=== PATIENT | female | born 1980 | race Caucasian/White ===

== ENCOUNTER 2023-02-07 05:58 | Day surgery (SDC) | payer BC ==
[2023-02-07 06:44] LABS: HCG URINE TEST NEGATIVE (NEGATIVE)
[2023-02-07 06:48] VITALS: RESP 18
[2023-02-07] MEDS ORDERED: Lactated Ringers 1,000 ML IV ONE (06:54)
[2023-02-07] MEDS ORDERED: Lactated Ringers 1,000 ML IV SCH (07:00)
[2023-02-07] MEDS ORDERED: Xylocaine-Mpf 2% 5 Ml Vial ONE (07:14)
[2023-02-07] MEDS ORDERED: Versed 2 MG/2 ML Injection ONE (07:15)
[2023-02-07] MEDS ORDERED: DIPRIVAN 200 MG/20 ML IV ONE ×2 (07:15→07:43)
[2023-02-07] MEDS ORDERED: Mylicon DROPS ONE (07:43)
--- NOTE | 2023-02-07 08:10 | OP ---
SURGERY DATE/TIME: 02/07/2023 0596 PREOPERATIVE DIAGNOSES: 1) Screening exam. 2) Mother had colon cancer in her early 30's. POSTOPERATIVE DIAGNOSES: 1) Normal colon. 2) Moderate to large external hemorrhoids. PROCEDURE: Colonoscopy. SURGEON: Dr. Mahmood. ANESTHESIA: MAC. Medications given by anesthesia department. HISTORY: The patient is a 42-year-old white female presenting now for screening colonoscopy. She reports her mother had colon cancer in her 30's. The patient was appraised of the risks of the procedure including the risk of perforation, phlebitis, untoward reaction to medication, bleeding and missed lesions. The patient verbalized her understanding and desired to have the procedure performed. DESCRIPTION OF PROCEDURE: The patient was given the medications by the anesthesia department. She had continuous pulse oximetry, ECG monitoring and intermittent blood pressure monitoring. She was placed in the left lateral decubitus position. A digital rectal examination was performed and revealed moderate to large external hemorrhoids. No masses were felt and normal anal sphincter tone was otherwise present. The flexible Olympus pediatric colonoscope was used to intubate the rectum. A view of the colon was developed sequentially to the cecum. Upon insertion and withdrawal, including a retroflex view in the rectum, no mucosal lesions were encountered. The scope was removed from the patient who tolerated the procedure well and was sent back to OP recovery in good condition. The prep was noted to be fair to good.
[2023-02-07 08:21] VITALS: O2SAT 100
[2023-02-07 08:43] VITALS: BP 140/85; PULSE 54; TEMP 97.3
== END 2023-02-07 08:50 | disposition home or self-care (01) ==
LOC: SDC 05:58
PROVIDERS: ATTEND Family Medicine
DX: Z12.11 Encounter for screening for malignant neoplasm of colon (principal); Z80.0 Family history of malignant neoplasm of digestive organs; K64.4 Residual hemorrhoidal skin tags
CPT/HCPCS: 81025; J2250; J2704; A9270-GY

== ENCOUNTER 2024-03-04 10:51 | Day surgery (SDC) | payer BC ==
--- NOTE | 2024-03-04 08:35 | HP ---
HISTORY AND PHYSICAL HISTORY OF PRESENT ILLNESS: Had some mid/low abdominal pain and some upper abdominal pressure at times, originating lower. Bowel movement urgency and some loose stools. Some trouble evacuating at times. Patient is diaphoretic at times. Last colonoscopy before gallbladder surgery in the past. Some rectal bleeding, some dark and light. PAST MEDICAL HISTORY: Recent changes in bowel habits and abdominal pain, depression, asthma. HOME MEDICATIONS: MiraLAX, escitalopram, albuterol sulfate. ALLERGIES: Sulfa. PAST SURGICAL HISTORY: Cholecystectomy and colonoscopy in the past. SOCIAL HISTORY: No smoking. Occasional alcohol use. FAMILY HISTORY: Family history, mother with colon cancer. Negative for inflammatory bowel disease. Colon cancer, heart disease, emphysema, and stroke. REVIEW OF SYSTEMS: Twelve systems reviewed. No chest pain or palpitations. Other systems negative or noncontributory as above and per preadmission questionnaire. PHYSICAL EXAMINATION: GENERAL: Height 5 feet 5 inches. BMI 27. HEENT: Sclerae nonicteric. NECK: No JVD. CARDIOVASCULAR: Regular rate and rhythm. ABDOMEN: Soft. No peritoneal signs. EXTREMITIES: No clubbing, cyanosis, or edema. NEUROLOGIC: Alert and oriented, moving all extremities symmetrically. PSYCHIATRIC: Appropriate mood and affect. SKIN: Dry. RECTAL: Deferred until the time of endoscopy exam. ASSESSMENT: Abdominal pain, discomfort, change in bowel habits, rectal bleeding, family history of colon cancer. Needs EGD and colonoscopy for evaluation to evaluate for celiac disease, gastritis, ulcer disease, colitis, neoplasia, or other etiology. Shown the risk sheet and explained the procedure in detail including but not limited to bleeding or infection, risk of bowel injury or perforation, risk of misdiagnosis or nondiagnosis, risk of incomplete exam possibly requiring barium enema or other studies or procedure or referrals, general risk of sedation or anesthesia, risk of bowel prep but not limited to. Will proceed with EGD and colonoscopy under MAC anesthesia. Otherwise, continue medications for asthma and depression.
[2024-03-04] MEDS ORDERED: Lactated Ringers 1,000 ML IV ONE (11:11)
[2024-03-04 11:14] VITALS: RESP 16; O2SAT 100
[2024-03-04] MEDS: Lactated Ringers 1,000 ML IV SCH (11:25)
[2024-03-04 11:41] LABS: HCG URINE TEST NEGATIVE (NEGATIVE)
[2024-03-04] MEDS ORDERED: DIPRIVAN 200 MG/20 ML IV ONE ×2 (13:51→13:53)
[2024-03-04] MEDS ORDERED: Versed 2 MG/2 ML Injection ONE (13:51)
[2024-03-04 15:07] VITALS: BP 115/77; PULSE 76; TEMP 98.6
--- NOTE | 2024-03-05 12:10 | OP ---
SURGERY DATE/TIME: 03/04/2024 4784 - [id number] PREOPERATIVE DIAGNOSES: 1) Change in bowel habits. 2) Abdominal pain. 3) Family history of colon cancer. 4) ASA Class 2. 5) Need for upper and lower endoscopy to evaluate for celiac, gastritis, ulcer disease, colitis, neoplasia, inflammatory bowel disease, or other etiology. POSTOPERATIVE DIAGNOSIS: 1) Minimal amount of gastritis. 2) Minimal esophageal erythema. 3) Colon polyps. 4) Good bowel prep. 5) Normal terminal ileum. PROCEDURE: 1) Esophagogastroduodenoscopy, cold biopsy of antrum for Helicobacter pylori, cold biopsy of distal esophagus to evaluate for normal variation versus early inflammation. 2) Colonoscopy to terminal ileum. 3) Retrograde ileoscopy. 4) Random ileal biopsy, random colon biopsy to evaluate for microscopic ileitis, microscopic colitis. 5) Hot biopsy polypectomy of small transverse colon polyp, small rectal polyp, small sigmoid colon polyps. SURGEON: Chris Daigle MD ANESTHESIA: MAC. ASA Class 2 with prep good. Withdrawal time was approximately 9 minutes. ESTIMATED BLOOD LOSS: Minimal. INDICATIONS: As above. Consent was obtained. DESCRIPTION OF PROCEDURE AND FINDINGS: This patient was taken to the endoscopy room. MAC anesthesia induced after official time-out for planned procedure. Bite block positioned. Videogastroscope easily passed down the esophagus to the junction of the third and fourth portion of duodenum. Duodenum grossly unremarkable. Given her symptom complaints, cold biopsy taken of the small bowel to evaluate for celiac sprue. Good hemostasis noted. Scope pulled back into the stomach. Some mild gastric erythema, minimal amount of gastritis. Cold biopsy was taken to evaluate for H. pylori. Good hemostasis noted. On retroflexion, GE junction was snug against the scope. Scope was straightened, pulled back. GE junction about 40 cm. Z-line was fairly crisp. There was just a little slight erythema distal esophagus. Cold biopsy taken to evaluate for some early inflammation. Good hemostasis noted. Remainder of esophagus grossly unremarkable. Scope was withdrawn. Attention then turned to colonoscopy. Digital rectal exam did not reveal any rectal masses. Videocolonoscope inserted and passed up through a slightly tortuous sigmoid, descending, transverse, and ascending colon around the cecum. Appendiceal orifice and valve well visualized. Appendical orifice, valve photo documented. Scope easily passed up the terminal ileum which was grossly unremarkable. Random cold biopsy taken of the ileum to evaluate for microscopic ileitis. Scope was then carefully withdrawn over the next 12 minutes. Random cold biopsy taken in the colon to evaluate for microscopic colitis. Scope was slowly and carefully withdrawn. Small 2 mm early polyps versus hyperplastic lesions in the transverse colon, sigmoid colon, and rectum removed with hot biopsy polypectomy. Good hemostasis noted. Random cold biopsy had been taken to evaluate for microscopic colitis. The mucosa itself looked fairly unremarkable other than the small polyps. A few little tiny scattered diverticula. No sign of any large polyps, masses, or obstructing lesions. Prep overall was good. A very small amount of liquidy stool was suctioned clear. No sign of any large polyps, masses, or obstructing lesions. No signs of any macroscopic inflammation. The patient tolerated the procedure well.
== END 2024-03-04 15:15 | disposition home or self-care (01) ==
LOC: SDC 10:51
PROVIDERS: ATTEND Surgery
DX: D12.3 Benign neoplasm of transverse colon (principal); R19.4 Change in bowel habit; R10.9 Unspecified abdominal pain; Z80.0 Family history of malignant neoplasm of digestive organs; K29.70 Gastritis, unspecified, without bleeding; K22.89 Other specified disease of esophagus; K57.90 Diverticulosis of intestine, part unspecified, without perforation or abscess without bleeding
CPT/HCPCS: 81025; J2250; J2704

== ENCOUNTER 2024-09-03 07:54 | Day surgery (SDC) | payer BC ==
[2024-09-03 08:39] LABS: HCG URINE TEST NEGATIVE (NEGATIVE)
[2024-09-03] MEDS ORDERED: Lactated Ringers 1,000 ML IV ONE ×2 (08:41→11:55)
[2024-09-03] MEDS ORDERED: CEFAZOLIN 2 GM/100 ML NaCl 2 GM/100 ML IVPB IV ONE (08:41)
[2024-09-03] MEDS: CEFAZOLIN 2 GM/100 ML NaCl 2 GM/100 ML IVPB IV SCH (08:44)
[2024-09-03] MEDS: Lactated Ringers 1,000 ML IV SCH (08:44)
[2024-09-03 08:54] VITALS: O2SAT 100
[2024-09-03 09:05] LABS: Absolute Neutrophil Ct (ANC) 4.11 x10^3/uL (1.56-6.13); Basophil (Absolute #) 0.06 x10^3/uL (0.01-0.08); Eosinophil % 2.5 % (0.7-5.8); Eosinophil (Absolute #) 0.16 x10^3/uL (0.04-0.36); Hematocrit 41.9 % (34.1-44.9); Hemoglobin 13.9 g/dL (11.2-15.7); IMMATURE GRAN # 0.02 x10^3u/L (0.001-0.031); IMMATURE GRAN % 0.3 % (0.001-0.429); Lymphocyte (Absolute #) 1.43 x10^3/uL (1.18-3.74); Lymphocytes % 22.7 % (19.3-51.7); Mean Cell Volume 89.5 fL (79.4-94.8); Mean Corpuscular Hemoglobin 29.7 pg (25.6-32.2); Mean Corpuscular Hgb Concent. 33.2 g/dL (32.2-35.5); Mean Platelet Volume 9.9 fL (9.4-12.3); Monocyte (Absolute #) 0.51 x10^3/uL (0.24-0.86); Monocytes % 8.1 % (4.7-12.5); Neutrophil % 65.4 % (34.0-71.1); Platelet Count 223 x10^3/uL (182-369); Red Blood Count 4.68 x10^6/uL (3.93-5.22); Red Cell Distribution Width 12.7 % (11.7-14.4); White Blood Count 6.3 x10^3/uL (3.98-10.04)
[2024-09-03 09:28] LABS: ANION GAP 13.8 MEQ/L (5-15); Calcium 9.2 mg/dL (8.4-10.2); Creatinine 1 0.71 mg/dL (0.52-1.04); EST GLOMERULAR FILTRATION RATE 106.8 ML/MIN; Potassium 4.4 mmol/L (3.5-5.1)
[2024-09-03] MEDS ORDERED: Sodium Chloride 0.9% 1000 ML 1,000 ML ONE (10:27)
[2024-09-03] MEDS ORDERED: ASTRINGYN 8 GM TP ONE (10:27)
[2024-09-03] MEDS ORDERED: Sensorcaine 0.25% 10 ML ONE (10:28)
[2024-09-03] MEDS ORDERED: Versed 2 MG/2 ML Injection ONE (10:38)
[2024-09-03] MEDS ORDERED: SUBLIMAZE 100 MCG/2 ML ONE ×2 (10:38→12:42)
[2024-09-03] MEDS ORDERED: propofoL IV ONE (10:38)
[2024-09-03] MEDS ORDERED: ROCURONIUM BROMIDE IV ONE ×2 (10:38→11:03)
[2024-09-03] MEDS ORDERED: XYLOCAINE 1%/Epi 1:100000 MDV 20 ML ONE (11:07)
[2024-09-03] MEDS ORDERED: BRIDION 200MG/2ML IV ONE (11:33)
[2024-09-03] MEDS ORDERED: Zofran 4 MG/2 ML VIAL ONE (12:19)
[2024-09-03] MEDS ORDERED: TORAdol 30 mg Injection ONE (12:26)
[2024-09-03] MEDS ORDERED: PERCOCET TABLET 5/325MG ONE (13:36)
[2024-09-03 14:17] VITALS: RESP 16
[2024-09-03 14:24] VITALS: BP 147/90; PULSE 57; TEMP 97.7
--- NOTE | 2024-09-04 17:41 | OP ---
SURGERY DATE/TIME: 09/03/2024 [id number] PREOPERATIVE DIAGNOSES: Menorrhagia, contraceptive care, cervical dysplasia, and IUD removal. POSTOPERATIVE DIAGNOSES: Menorrhagia, contraceptive care, cervical dysplasia, and IUD removal. PROCEDURE: Removal of IUD, laparoscopic tubal sterilization via bilateral salpingectomy and fulguration, hysteroscopy, dilatation and curettage with NovaSure ablation, and loop electrosurgical excision procedure. SURGEON: Laith Villalpando DO FAMILY RESOURCE MANAGEMENT SPECIALIST: Coty Briscoe ANESTHESIA: General. ESTIMATED BLOOD LOSS: Minimal. COMPLICATIONS: None. INDICATIONS: The risks, benefits, indications, and alternatives of the procedure were reviewed with the patient prior to the procedure. Patient understood the risks of infection, bowel injury, bladder injury, ureteral injury, thromboembolic disorder, bowel injury, possible future , and ectopic that maybe associated with this procedure. All other forms of control have been discussed with the patient prior to the procedure. It was also discussed for removal of the tubes versus alternate methods of sterilization. DESCRIPTION OF PROCEDURE AND FINDINGS: At this point, patient was taken to the operating room, given general sedation, placed in the dorsal lithotomy position, prepped and draped in the usual sterile fashion. A weighted speculum was then placed in the patient's vagina and the anterior lip of the cervix was grasped with a single-tooth tenaculum. At this point, the IUD string was noted and was removed with a ring forceps and was done so without complication. At this point, a uterine manipulator was then inserted into the endocervical canal as a means to manipulate and elevate the uterus. Attention was then turned to the patient's abdomen where a 5 mm skin incision was made in an umbilical fold where a 5 mm trocar and sleeve were advanced under direct visualization where pneumoperitoneum was placed with 4 L of CO2 gas that was inserted. Patient's pelvis and abdomen revealed entirely normal anatomy. An additional incision was made 2 cm above the symphysis pubis where an 8 mm incision was made and 8 mm trocar and sleeve were advanced under direct visualization. An additional 5 mm trocar and sleeve were advanced under direct visualization on the left middle quadrant region and was done so without complication. At this point, the uterus was then elevated and with a grasper, the left fallopian tube was elevated and the LigaSure was used and placed over the mesosalpinx region where it was clamped, coagulate, and cut and taken down entirely with approximately 2 cm of tube that remained. Hemostasis was obtained. The same procedure was performed at the right side where the right fallopian tube was elevated and the LigaSure was placed on the mesosalpinx region where it was clamped, coagulate, and cut taking down to approximately 2 cm from the cornual region were coagulation and fulguration was attained by using the bipolar cautery. Hemostasis was obtained. At this point, all instruments were removed in the patient's abdominal region and the incisions were closed with 4-0 Monocryl suture. Attention was then turned to the patient's vaginal region. At this point, a weighted speculum was then placed in the patient's vagina and the anterior lip of the cervix was grasped with a single-tooth tenaculum. Endocervical dilators were advanced through the endocervical canal as a means to dilate the cervix and the 5 mm hysteroscope was then placed into the fundal region where visualization appeared to be within normal limits and no gross abnormalities were noted within the uterine cavity. At this point, the hysteroscope was removed and NovaSure instrument was then placed and taken through the fundal region and retracted approximately 1 cm in depth of 6.5 cm and the width of 4.3 cm where it was engaged with an ablative time of 37 seconds. After complete ablation, the NovaSure was removed from the uterine cavity. The hemostasis was obtained. From this point, the procedure proceeded for the LEEP where at this point 1% lidocaine with epinephrine was used to inject circumferentially around the cervix and approximately 5 mL were used. At this point, with a right to left motion, the loop instrument was used to excise the ectocervical portion with the in depth of 7 to 8 mm and an additional 2 to 3 mm of endocervical tissue was obtained as well. From this point, the loop coagulated ball was placed from the surface of the cervical where further hemostasis was obtained. After hemostasis was obtained, all instruments removed from the patient's vaginal region. The patient was then taken out of the dorsal lithotomy position, was taken out of anesthesia, was then taken to recovery room in stable condition. All instruments and laps were accounted for x2.
== END 2024-09-03 14:35 | disposition home or self-care (01) ==
LOC: SDC 07:54
PROVIDERS: ATTEND Obstetrics & Gynecology
DX: N92.0 Excessive and frequent menstruation with regular cycle (principal); N87.9 Dysplasia of cervix uteri, unspecified; Z30.432 Encounter for removal of intrauterine contraceptive device; Z30.2 Encounter for sterilization
CPT/HCPCS: 36415; 57460; 58563; 58661; 80048; 81025; 85025; J0690; J1885; J2250; J2405; J2704; J3010; A9270-GY

== ENCOUNTER 2025-05-06 07:06 | Observation (INO) | payer BC ==
[2025-05-06 07:37] LABS: HCG URINE TEST NEGATIVE (NEGATIVE)
[2025-05-06] MEDS ORDERED: CEFAZOLIN SODIUM ONE (07:38)
[2025-05-06] MEDS ORDERED: TYLENOL EXTRA STRENGTH 500 MG ONE (07:39)
[2025-05-06] MEDS ORDERED: celeBREX 100 MG ONE (07:40)
[2025-05-06] MEDS ORDERED: NEURONTIN ONE (07:40)
[2025-05-06] MEDS ORDERED: Lactated Ringers 1,000 ML IV ONE ×2 (07:40→11:54)
[2025-05-06] MEDS ORDERED: Decadron 4 MG ONE (07:40)
[2025-05-06] MEDS: NEURONTIN PO ONE (07:54)
[2025-05-06] MEDS: Lactated Ringers 1,000 ML IV SCH ×2 (07:54→16:44)
[2025-05-06] MEDS: Decadron 4 MG PO ONE (07:54)
[2025-05-06] MEDS: celeBREX 100 MG PO ONE (07:55)
[2025-05-06] MEDS: TYLENOL EXTRA STRENGTH 500 MG PO ONE (07:55)
[2025-05-06 08:30] LABS: BASOPHIL % 0.9 % (0.1-1.2); Basophil (Absolute #) 0.05 x10^3/uL (0.01-0.08); Eosinophil (Absolute #) 0.14 x10^3/uL (0.04-0.36); Hematocrit 44.9 % (34.1-44.9); Hemoglobin 14.3 g/dL (11.2-15.7); IMMATURE GRAN # 0.02 x10^3u/L (0.001-0.031); IMMATURE GRAN % 0.4 % (0.001-0.429); Lymphocyte (Absolute #) 1.20 x10^3/uL (1.18-3.74); Mean Corpuscular Hemoglobin 29.2 pg (25.6-32.2); Mean Corpuscular Hgb Concent. 31.8 g/dL (32.2-35.5); Monocyte (Absolute #) 0.44 x10^3/uL (0.24-0.86); NUCLEATED RBC # 0.00 x10^3u/L (0.00-0.012); NUCLEATED RBC % 0.0 % (0.00-0.2); Platelet Count 232 x10^3/uL (182-369); Red Blood Count 4.90 x10^6/uL (3.93-5.22); White Blood Count 5.7 x10^3/uL (3.98-10.04)
[2025-05-06 08:56] LABS: Calcium 8.9 mg/dL (8.4-10.2); Carbon Dioxide 22.0 mmol/L (22-30); Creatinine 1 0.84 mg/dL (0.52-1.04); EST GLOMERULAR FILTRATION RATE 86.7 ML/MIN; Glucose 88.0 mg/dL (74-106); Potassium 4.0 mmol/L (3.5-5.1); SGOT/AST 25.0 U/L (14-36); SGPT/ALT 14.0 U/L (0-35); Total Protein 8.0 g/dL (6.3-8.2)
[2025-05-06 09:21] LABS: ABO TYPING O; RH TYPING POSITIVE
[2025-05-06] MEDS ORDERED: Sensorcaine 0.25% 10 ML ONE (11:18)
[2025-05-06] MEDS ORDERED: PITRESSIN 20 UNITS ONE (11:19)
[2025-05-06] MEDS ORDERED: TORAdol 30 mg Injection ONE (11:23)
[2025-05-06] MEDS ORDERED: Xylocaine-Mpf 2% 5 Ml Vial ONE (11:23)
[2025-05-06] MEDS ORDERED: Zofran 4 MG/2 ML VIAL ONE (11:23)
[2025-05-06] MEDS ORDERED: propofoL IV ONE ×2 (11:23)
[2025-05-06] MEDS ORDERED: BRIDION 200MG/2ML IV ONE (11:23)
[2025-05-06] MEDS ORDERED: Astramorph-Pf 5 MG/10 ML ONE (11:23)
[2025-05-06] MEDS ORDERED: ROCURONIUM BROMIDE IV ONE (11:23)
[2025-05-06] MEDS ORDERED: SUBLIMAZE 100 MCG/2 ML ONE ×2 (11:23→14:16)
[2025-05-06] MEDS ORDERED: Versed 2 MG/2 ML Injection ONE (11:28)
[2025-05-06] MEDS ORDERED: DEXMEDETOMIDINE 80 MCG/20ML-NS IV ONE (12:33)
[2025-05-06] MEDS ORDERED: Ephedrine Sulfate 50 MG/ML ONE (13:47)
[2025-05-06] MEDS ORDERED: Marcaine Spinal Ampul IJ ONE (13:48)
[2025-05-06] MEDS ORDERED: DILAUDID 0.5 MG/0.5 ML SYRINGE ONE (14:17)
[2025-05-06 14:56] LABS: Glucose, Urine Negative (Negative); Protein,Urine Dip Negative (Negative); RBC 0-2 /HPF (0-5); WBC 0-2 /HPF (0-5)
[2025-05-06] MEDS ORDERED: Zofran 4 MG/2 ML VIAL IV PRN ×2 (15:25→15:30)
[2025-05-06] MEDS ORDERED: TORAdol 30 mg Injection IV PRN (15:27)
[2025-05-06] MEDS ORDERED: CLARITIN 10 MG PO PRN (15:30)
[2025-05-06] MEDS ORDERED: Narcan 0.4 MG/ML IV PRN (15:30)
[2025-05-06] MEDS ORDERED: ESTRADIOL TD SCH (15:30)
[2025-05-06] MEDS ORDERED: DEMEROL 50 MG IV PRN (15:30)
[2025-05-06] MEDS ORDERED: Sodium Chloride 0.9% 10 ML FLUSH Syringe IJ PRN (15:30)
[2025-05-06] MEDS ORDERED: MORPHINE SULFATE 2 MG INJ IV PRN (15:30)
[2025-05-06] MEDS ORDERED: Nubain 10 MG/ML IV PRN (15:30)
[2025-05-06] MEDS ORDERED: BENADRYL 50 MG/ML IV PRN (15:30)
[2025-05-06] MEDS ORDERED: MEDICATION INTERVENTION MC SCH ×2 (15:45)
[2025-05-06] MEDS: Mylicon 80MG PO SCH (16:31)
[2025-05-06] MEDS: Reglan 10 MG/2 ML IV SCH (16:31)
[2025-05-06] MEDS: AMITRIPTYLINE 25 MG TABLET PO SCH (16:34)
[2025-05-06] MEDS: FEOSOL 325 MG PO SCH (16:34)
[2025-05-06] MEDS: Protonix 40MG Tablet PO SCH (16:34)
[2025-05-06] MEDS: PERCOCET TABLET 5/325MG PO PRN (16:38)
[2025-05-06 18:09] LABS: Hematocrit 46.0 % (34.1-44.9); Hemoglobin 14.7 g/dL (11.2-15.7); Mean Corpuscular Hemoglobin 29.8 pg (25.6-32.2); Mean Corpuscular Hgb Concent. 32.0 g/dL (32.2-35.5); Platelet Count 241 x10^3/uL (182-369); Red Blood Count 4.94 x10^6/uL (3.93-5.22); White Blood Count 17.9 x10^3/uL (3.98-10.04)
[2025-05-06] MEDS: Docusate Sodium 100 MG PO SCH (22:15)
[2025-05-07 05:03] LABS: Hematocrit 33.9 % (34.1-44.9); Hemoglobin 11.4 g/dL (11.2-15.7); Mean Corpuscular Hemoglobin 30.2 pg (25.6-32.2); Mean Corpuscular Hgb Concent. 33.6 g/dL (32.2-35.5); Platelet Count 213 x10^3/uL (182-369); Red Blood Count 3.78 x10^6/uL (3.93-5.22); White Blood Count 11.9 x10^3/uL (3.98-10.04)
[2025-05-07 05:24] LABS: Calcium 8.2 mg/dL (8.4-10.2); Carbon Dioxide 20.0 mmol/L (22-30); Creatinine 1 0.68 mg/dL (0.52-1.04); EST GLOMERULAR FILTRATION RATE 108.7 ML/MIN; Glucose 100.0 mg/dL (74-106); Potassium 3.6 mmol/L (3.5-5.1); SGOT/AST 17.0 U/L (14-36); SGPT/ALT 12.0 U/L (0-35); Total Protein 5.9 g/dL (6.3-8.2)
[2025-05-07 07:32] VITALS: O2SAT 98
--- NOTE | 2025-05-07 07:51 | PCM.NOTE ---
Date and Time: 05/07/25 0749 Subjective Assessment: pod 1 sp lavh pt resting in bed able to ambulate and tolerate diet vss afebrile abd; soft incision c/d/intact ext; no clubbing cyanosis or edema pelvic; packing removed with minimal soilage hgb; 11.4 a/p sp lavh will repeat cbc at 11 anticipate discharge today should fu in office in 2 wks Objective Exam Wound Assessment: Skin/Wound Assessment Wound/Incision Assessment Start: 05/06/25 16:25 Text: Status: Active Freq: Protocol: Document 05/06/25 16:25 RB (Rec: 05/06/25 16:26 RB [id number]) Wound/Incision Assessment Upper Thigh Wound Assessment Admission Wound Type rash Wound Stage Non Pressure Wound Dressing Status Dry & Intact Drainage Odor None/Absent Comment rash noted to bilateral inner thighs, pt reports she gets in grown hairs and picks them out. no bleeding or drainage noted Anterior Abdomen Wound Assessment Admission Wound Type Puncture Wound Stage Non Pressure Wound Dressing Status Dry & Intact Drainage Amount None Drainage Odor None/Absent General Appearance Well Approximated Primary Dressing open to air Comment 3 ounctuer sites post op hysterectoimy, dermabonded, no bleeding or drainage Wound Photo Photo Taken No Objective Data Vital Signs: Vital Signs - 24 hr Temp Pulse Resp BP Pulse Ox 05/07/25 07:31 98.3 F 79 18 99/55 98 05/07/25 03:53 97.9 F 69 16 99/55 94 L 05/06/25 23:27 97.8 F 86 20 102/59 95 05/06/25 19:57 99.1 F 96 H 16 106/64 99 05/06/25 17:00 97.9 F 56 L 16 143/68 100 05/06/25 16:00 97.8 F 68 16 141/75 99 05/06/25 15:58 97.8 F 68 16 141/75 99 05/06/25 15:46 60 16 137/78 100 05/06/25 15:34 97.7 F 71 16 122/75 99 05/06/25 15:13 97.6 F 58 L 16 140/79 99 05/06/25 07:56 97.8 F 64 17 119/73 100 Pain Assessment - Last Documented Pain Intensity 3 Pain Scale Used 0-10 Pain Scale Intake and Output: Intake & Output 05/04/25 05/05/25 05/06/25 05/07/25 11:59 11:59 11:59 11:59 Intake Total 2163 Output Total 875 Balance 1288 Weight 89.7 kg 92.3 kg Lab Results: Lab Results-Last 24 Hours 05/06/25 05/06/25 05/06/25 Range/Units 08:13 08:13 08:13 WBC 5.7 (3.98-10.04) x10^3/uL RBC 4.90 (3.93-5.22) x10^6/uL Hgb 14.3 (11.2-15.7) g/dL Hct 44.9 (34.1-44.9) % MCV 91.6 (79.4-94.8) fL MCH 29.2 (25.6-32.2) pg MCHC 31.8 L (32.2-35.5) g/dL RDW 13.0 (11.7-14.4) % Plt Count 232 (182-369) x10^3/uL MPV 9.9 (9.4-12.3) fL Gran % 67.4 (34.0-71.1) % Immature Gran % (Auto) 0.4 (0.001-0.429) % Nucleat RBC Rel Count 0.0 (0.00-0.2) % Eos # (Auto) 0.14 (0.04-0.36) x10^3/uL Immature Gran # (Auto) 0.02 (0.001-0.031) x10^3u/L Absolute Lymphs (auto) 1.20 (1.18-3.74) x10^3/uL Absolute Monos (auto) 0.44 (0.24-0.86) x10^3/uL Absolute Nucleated RBC 0.00 (0.00-0.012) x10^3u/L Lymphocytes % 21.1 (19.3-51.7) % Monocytes % 7.7 (4.7-12.5) % Eosinophils % 2.5 (0.7-5.8) % Basophils % 0.9 (0.1-1.2) % Absolute Granulocytes 3.85 (1.56-6.13) x10^3/uL Basophils # 0.05 (0.01-0.08) x10^3/uL Sodium 137 (135-145) mmol/L Potassium 4.0 (3.5-5.1) mmol/L Chloride 105 (98-107) mmol/L Carbon Dioxide 22 (22-30) mmol/L Anion Gap 13.8 (5-15) MEQ/L BUN 13 (7-17) mg/dL Creatinine 0.84 (0.52-1.04) mg/dL Estimated GFR 86.7 ML/MIN Glucose 88 (74-106) mg/dL Calcium 8.9 (8.4-10.2) mg/dL Total Bilirubin 0.80 (0.2-1.3) mg/dL AST 25 (14-36) U/L ALT 14 (0-35) U/L Alkaline Phosphatase 57 (38-126) U/L Serum Total Protein 8.0 (6.3-8.2) g/dL Albumin 4.6 (3.5-5.0) g/dL Urine Color (Yellow) Urine Appearance (Clear) Urine pH (4.6-8.0) Ur Specific [place] (1.005-1.030) Urine Protein (Negative) Urine Glucose (UA) (Negative) mg/dL Urine Ketones (Negative) Urine Blood (Negative) Urine Nitrite (Negative) Urine Bilirubin (Negative) Urine Urobilinogen (0.2) mg/dL Ur Leukocyte Esterase (Negative) U Hyaline Cast (Auto) (0-2) /LPF Urine Microscopic RBC (0-5) /HPF Urine Microscopic WBC (0-5) /HPF Ur Epithelial Cells (None Seen) /HPF Urine Bacteria (None Seen) /HPF ABO Group O Rh Factor POSITIVE Antibody Screen NEGATIVE (NEGATIVE) 05/06/25 05/06/25 05/07/25 Range/Units 12:03 18:00 04:22 WBC 17.9 H 11.9 H (3.98-10.04) x10^3/uL RBC 4.94 3.78 L (3.93-5.22) x10^6/uL Hgb 14.7 11.4 D (11.2-15.7) g/dL Hct 46.0 H 33.9 L (34.1-44.9) % MCV 93.1 89.7 (79.4-94.8) fL MCH 29.8 30.2 (25.6-32.2) pg MCHC 32.0 L 33.6 (32.2-35.5) g/dL RDW 12.8 13.2 (11.7-14.4) % Plt Count 241 213 (182-369) x10^3/uL MPV 9.9 10.4 (9.4-12.3) fL Gran % (34.0-71.1) % Immature Gran % (Auto) (0.001-0.429) % Nucleat RBC Rel Count (0.00-0.2) % Eos # (Auto) (0.04-0.36) x10^3/uL Immature Gran # (Auto) (0.001-0.031) x10^3u/L Absolute Lymphs (auto) (1.18-3.74) x10^3/uL Absolute Monos (auto) (0.24-0.86) x10^3/uL Absolute Nucleated RBC (0.00-0.012) x10^3u/L Lymphocytes % (19.3-51.7) % Monocytes % (4.7-12.5) % Eosinophils % (0.7-5.8) % Basophils % (0.1-1.2) % Absolute Granulocytes (1.56-6.13) x10^3/uL Basophils # (0.01-0.08) x10^3/uL Sodium (135-145) mmol/L Potassium (3.5-5.1) mmol/L Chloride (98-107) mmol/L Carbon Dioxide (22-30) mmol/L Anion Gap (5-15) MEQ/L BUN (7-17) mg/dL Creatinine (0.52-1.04) mg/dL Estimated GFR ML/MIN Glucose (74-106) mg/dL Calcium (8.4-10.2) mg/dL Total Bilirubin (0.2-1.3) mg/dL AST (14-36) U/L ALT (0-35) U/L Alkaline Phosphatase (38-126) U/L Serum Total Protein (6.3-8.2) g/dL Albumin (3.5-5.0) g/dL Urine Color Yellow (Yellow) Urine Appearance Clear (Clear) Urine pH 8.0 (4.6-8.0) Ur Specific [place] 1.010 (1.005-1.030) Urine Protein Negative (Negative) Urine Glucose (UA) Negative (Negative) mg/dL Urine Ketones Negative (Negative) Urine Blood Negative (Negative) Urine Nitrite Negative (Negative) Urine Bilirubin Negative (Negative) Urine Urobilinogen 1.0 A (0.2) mg/dL Ur Leukocyte Esterase Negative (Negative) U Hyaline Cast (Auto) NONE SEEN (0-2) /LPF Urine Microscopic RBC 0-2 (0-5) /HPF Urine Microscopic WBC 0-2 (0-5) /HPF Ur Epithelial Cells None Seen (None Seen) /HPF Urine Bacteria None Seen (None Seen) /HPF ABO Group Rh Factor Antibody Screen (NEGATIVE) 05/07/25 Range/Units 04:22 WBC (3.98-10.04) x10^3/uL RBC (3.93-5.22) x10^6/uL Hgb (11.2-15.7) g/dL Hct (34.1-44.9) % MCV (79.4-94.8) fL MCH (25.6-32.2) pg MCHC (32.2-35.5) g/dL RDW (11.7-14.4) % Plt Count (182-369) x10^3/uL MPV (9.4-12.3) fL Gran % (34.0-71.1) % Immature Gran % (Auto) (0.001-0.429) % Nucleat RBC Rel Count (0.00-0.2) % Eos # (Auto) (0.04-0.36) x10^3/uL Immature Gran # (Auto) (0.001-0.031) x10^3u/L Absolute Lymphs (auto) (1.18-3.74) x10^3/uL Absolute Monos (auto) (0.24-0.86) x10^3/uL Absolute Nucleated RBC (0.00-0.012) x10^3u/L Lymphocytes % (19.3-51.7) % Monocytes % (4.7-12.5) % Eosinophils % (0.7-5.8) % Basophils % (0.1-1.2) % Absolute Granulocytes (1.56-6.13) x10^3/uL Basophils # (0.01-0.08) x10^3/uL Sodium 135 (135-145) mmol/L Potassium 3.6 (3.5-5.1) mmol/L Chloride 110 H (98-107) mmol/L Carbon Dioxide 20 L (22-30) mmol/L Anion Gap 9.1 (5-15) MEQ/L BUN 10 (7-17) mg/dL Creatinine 0.68 (0.52-1.04) mg/dL Estimated GFR 108.7 ML/MIN Glucose 100 (74-106) mg/dL Calcium 8.2 L (8.4-10.2) mg/dL Total Bilirubin 0.40 (0.2-1.3) mg/dL AST 17 (14-36) U/L ALT 12 (0-35) U/L Alkaline Phosphatase 55 (38-126) U/L Serum Total Protein 5.9 L (6.3-8.2) g/dL Albumin 3.2 L (3.5-5.0) g/dL Urine Color (Yellow) Urine Appearance (Clear) Urine pH (4.6-8.0) Ur Specific [place] (1.005-1.030) Urine Protein (Negative) Urine Glucose (UA) (Negative) mg/dL Urine Ketones (Negative) Urine Blood (Negative) Urine Nitrite (Negative) Urine Bilirubin (Negative) Urine Urobilinogen (0.2) mg/dL Ur Leukocyte Esterase (Negative) U Hyaline Cast (Auto) (0-2) /LPF Urine Microscopic RBC (0-5) /HPF Urine Microscopic WBC (0-5) /HPF Ur Epithelial Cells (None Seen) /HPF Urine Bacteria (None Seen) /HPF ABO Group Rh Factor Antibody Screen (NEGATIVE) Medications: Medications Generic Name Dose Route Start Last Admin Trade Name Freq PRN Reason Stop Dose Admin Amitriptyline HCl 25 mg 05/06/25 16:00 05/06/25 16:34 Amitriptyline Hcl 25 Mg Tablet PO 06/05/25 15:59 25 mg DAILY SUSAN Administration Diphenhydramine HCl 12.5 - 25 mg 05/06/25 15:30 Diphenhydramine Hcl 50 Mg/Ml Vial IV 05/07/25 15:29 Q6H PRN PRN FOR INTOLERABLE ITCHING Docusate Sodium 100 mg 05/06/25 22:00 05/06/25 22:15 Docusate Sodium 100 Mg Capsule PO 06/05/25 21:59 100 mg BID SUSAN Administration Enoxaparin Sodium 40 mg 05/07/25 10:00 Enoxaparin Sodium 40 Mg/0.4 Ml Syringe SQ 06/06/25 09:59 DAILY SUSAN Ferrous Sulfate 325 mg 05/06/25 16:00 05/06/25 16:34 Ferrous Sulfate 325 Mg Tablet PO 06/05/25 15:59 325 mg DAILY SUSAN Administration Lactated Ringer's 1,000 mls @ 125 mls/hr 05/06/25 15:30 05/06/25 23:12 Lactated Ringers IV 06/05/25 15:29 125 mls/hr .Q8H SUSAN Administration Ketorolac Tromethamine 30 mg 05/06/25 15:27 Ketorolac Tromethamine 30 Mg/Ml Inj IV 05/11/25 15:26 Q6H PRN PRN BREAKTHRU PAIN Loratadine 10 mg 05/06/25 15:30 Loratadine 10 Mg Tablet PO 05/07/25 15:29 QDP PRN ITCHING Meperidine HCl 12.5 mg 05/06/25 15:30 Meperidine Hcl 50 Mg/Ml Carp IV 05/07/25 15:29 PRN PRN X 1 PRN SHAKING/TREMORS Metoclopramide HCl 10 mg 05/06/25 15:30 05/07/25 06:15 Metoclopramide Hcl 10 Mg/2 Ml Vial IV 06/05/25 15:29 10 mg Q8HT SUSAN Administration Miscellaneous Information 1 each 05/06/25 15:45 Medication Intervention 1 Each Each 06/05/25 15:44 .RN TO CHECK [facility] Miscellaneous Information 1 each 05/06/25 15:45 Medication Intervention 1 Each Each 06/05/25 15:44 .RN TO CHECK SUSAN Morphine Sulfate 2 mg 05/06/25 15:30 Morphine Sulfate 2 Mg/Ml Inj IV 05/07/25 15:29 .Q30MIN PRN PRN BREAKTHROUGH ,SEVERE PAIN Nalbuphine HCl 5 mg 05/06/25 15:30 Nalbuphine Hcl 10 Mg/Ml Ampul IV 05/07/25 15:29 Q6H PRN PRN FOR INTOLERABLE ITCHING Naloxone HCl 0.1 mg 05/06/25 15:30 Naloxone Hcl 0.4 Mg/Ml Ml IV 05/07/25 15:29 PRN PRN Non-Formulary Medication 1 each 05/07/25 10:00 Hold Narcotic Analgesics/Sedatives 1 Each Each 05/07/25 10:01 DAILY SUSAN Ondansetron HCl 4 mg 05/06/25 15:30 Ondansetron Hcl 4 Mg/2 Ml Vial IV 05/07/25 15:29 PRN PRN NAUSEA Ondansetron HCl 4 mg 05/06/25 15:25 Ondansetron Hcl 4 Mg/2 Ml Vial IV 06/05/25 15:24 Q6H PRN PRN N/V Oxycodone/Acetaminophen 1 - 2 tab 05/06/25 15:30 05/06/25 16:38 Oxycodone Hcl/Apap 5 Mg/325 Mg Tablet PO 05/07/25 15:29 1 tab Q4H PRN PRN Administration MODERATE PAIN Pantoprazole Sodium 40 mg 05/06/25 16:00 05/06/25 16:34 Protonix (Pantoprazole) 40 Mg Tablet PO 06/05/25 15:59 40 mg DAILY SUSAN Administration Simethicone 80 mg 05/06/25 15:30 05/07/25 06:15 Simethicone 80 Mg Tab.Chew PO 06/05/25 15:29 80 mg Q8HT SUSAN Administration Sodium Chloride 10 ml 05/06/25 15:30 Normal Saline 10 Ml Flush IJ 05/07/25 15:29 PRN PRN MAINTAIN IV/SALINE LOCK Discontinued Medications Generic Name Dose Route Start Last Admin Trade Name Freq PRN Reason Stop Dose Admin Acetaminophen 1,000 mg 05/06/25 07:26 05/06/25 07:55 Acetaminophen 500 Mg Tablet PO 05/06/25 07:27 1,000 mg 2HRPRIOR ONE Administration Acetaminophen Confirm 05/06/25 07:39 Acetaminophen 500 Mg Tablet Administered 05/06/25 07:40 Dose 1,000 mg .ROUTE .STK-MED ONE Bupivacaine HCl Confirm 05/06/25 11:18 Bupivacaine Hcl 2.5 Mg/Ml 10 Ml Administered 05/06/25 11:19 Dose 10 ml .ROUTE .STK-MED ONE Bupivacaine HCl/Dextrose Confirm 05/06/25 13:48 Bupivacaine Hcl/Dex-Water/Pf 2 Ml Ampul Administered 05/06/25 13:49 Dose 2 ml IJ .STK-MED ONE Cefazolin Sodium Confirm 05/06/25 07:38 Cefazolin Sodium 2 Gm Vial Administered 05/06/25 07:39 Dose 2 gm .ROUTE .STK-MED ONE Celecoxib 200 mg 05/06/25 07:26 05/06/25 07:55 Celecoxib 100 Mg Capsule PO 05/06/25 07:27 200 mg 2HRPRIOR ONE Administration Celecoxib Confirm 05/06/25 07:40 Celecoxib 100 Mg Capsule Administered 05/06/25 07:41 Dose 200 mg .ROUTE .STK-MED ONE Dexamethasone 8 mg 05/06/25 07:26 05/06/25 07:54 Dexamethasone 4 Mg Tablet PO 05/06/25 07:27 8 mg 2HRPRIOR ONE Administration Dexamethasone Confirm 05/06/25 07:40 Dexamethasone 4 Mg Tablet Administered 05/06/25 07:41 Dose 8 mg .ROUTE .STK-MED ONE Dexmedetomidine/Sodium Chloride Confirm 05/06/25 12:33 Dexmedetomidine In 0.9 % Nacl 80 Mcg/20 Ml Vial Administered 05/06/25 12:34 Dose 80 mcg IV .STK-MED ONE Ephedrine Sulfate Confirm 05/06/25 13:47 Ephedrine Sulfate 50 Mg/Ml Administered 05/06/25 13:48 Dose 50 mg .ROUTE .STK-MED ONE Fentanyl Citrate Confirm 05/06/25 11:23 Fentanyl Citrate 100 Mcg/2 Ml* Vial Administered 05/06/25 11:24 Dose 100 mcg .ROUTE .STK-MED ONE Fentanyl Citrate Confirm 05/06/25 14:16 Fentanyl Citrate 100 Mcg/2 Ml* Vial Administered 05/06/25 14:17 Dose 100 mcg .ROUTE .STK-MED ONE Gabapentin 600 mg 05/06/25 07:26 05/06/25 07:54 Gabapentin 300 Mg Capsule PO 05/06/25 07:27 600 mg 2HRPRIOR ONE Administration Gabapentin Confirm 05/06/25 07:40 Gabapentin 300 Mg Capsule Administered 05/06/25 07:41 Dose 600 mg .ROUTE .STK-MED ONE Hydromorphone HCl Confirm 05/06/25 14:17 Hydromorphone Hcl/Pf 0.5 Mg/0.5 Ml Syringe Administered 05/06/25 14:18 Dose 0.5 mg .ROUTE .STK-MED ONE Lactated Ringer's 1,000 mls @ 50 mls/hr 05/06/25 07:30 05/06/25 07:54 Lactated Ringers IV 06/05/25 07:29 50 mls/hr .Q20H SUSAN Administration Cefazolin Sodium 2 gm/ Sodium 100 mls @ 200 mls/hr 05/06/25 07:30 05/06/25 07:53 Chloride IV 05/06/25 07:59 200 mls/hr ONCALLTOOR ONE Administration Sodium Chloride Confirm 05/06/25 07:38 Sodium Chloride 0.9% Administered 05/06/25 07:39 Dose 100 mls @ ud .ROUTE .STK-MED ONE Lactated Ringer's Confirm 05/06/25 07:40 Lactated Ringers Administered 05/06/25 07:41 Dose 1,000 mls @ ud IV .STK-MED ONE Sodium Chloride Confirm 05/06/25 11:18 Sodium Chloride 0.9% Administered 05/06/25 11:19 Dose 200 mls @ ud .ROUTE .STK-MED ONE Sodium Chloride Confirm 05/06/25 11:18 Sodium Chloride 0.9% 1000 Ml Administered 05/06/25 11:19 Dose 1,000 mls @ ud .ROUTE .STK-MED ONE Lactated Ringer's Confirm 05/06/25 11:54 Lactated Ringers Administered 05/06/25 11:55 Dose 1,000 mls @ ud IV .STK-MED ONE Sodium Chloride 100 mls @ ud 05/06/25 11:18 Sodium Chloride 0.9% IV 05/06/25 11:19 .STK-MED ONE Cefazolin Sodium 2 gm/ Sodium 100 mls @ 200 mls/hr 05/06/25 20:00 05/07/25 05:08 Chloride IV 05/07/25 04:29 200 mls/hr Q8H SUSAN Administration Ketorolac Tromethamine Confirm 05/06/25 11:23 Ketorolac Tromethamine 30 Mg/Ml Inj Administered 05/06/25 11:24 Dose 30 mg .ROUTE .STK-MED ONE Lidocaine HCl Confirm 05/06/25 11:23 Lidocaine - Mpf 2% 5 Ml Vial Administered 05/06/25 11:24 Dose 5 ml .ROUTE .STK-MED ONE Midazolam HCl Confirm 05/06/25 11:28 Midazolam Hcl 2 Mg/2 Ml Vial Administered 05/06/25 11:29 Dose 2 mg .ROUTE .STK-MED ONE Morphine Sulfate Confirm 05/06/25 11:23 Morphine Sulfate 5 Mg/10 Ml Pf Ampul Administered 05/06/25 11:24 Dose 5 mg .ROUTE .STK-MED ONE Ondansetron HCl Confirm 05/06/25 11:23 Ondansetron Hcl 4 Mg/2 Ml Vial Administered 05/06/25 11:24 Dose 4 mg .ROUTE .STK-MED ONE Propofol Confirm 05/06/25 11:23 Propofol 200 Mg/20 Ml Vial Administered 05/06/25 11:24 Dose 200 mg IV .STK-MED ONE Rocuronium [place] Confirm 05/06/25 11:23 Rocuronium [place] 50 Mg/5 Ml Vial Administered 05/06/25 11:24 Dose 50 mg IV .STK-MED ONE Sugammadex Sodium Confirm 05/06/25 11:23 Sugammadex Sodium 200 Mg/2 Ml Vial Administered 05/06/25 11:24 Dose 200 mg IV .STK-MED ONE Vasopressin Confirm 05/06/25 11:19 Vasopressin 20 Unit/Ml Ml Administered 05/06/25 11:20 Dose 20 unit .ROUTE .STK-MED ONE Assessment/Plan (1) S/P laparoscopic assisted vaginal hysterectomy (LAVH) Current Visit: Yes Status: Acute Code(s): Z90.710 - ACQUIRED ABSENCE OF BOTH CERVIX AND UTERUS (2) Severe dysmenorrhea Current Visit: Yes Status: Acute Code(s): N94.6 - DYSMENORRHEA, UNSPECIFIED
--- NOTE | 2025-05-07 07:57 | PCM.DS ---
Discharge Summary Date of Admission: 05/06/25 07:06 Admitting Physician: JULIANNE ANDERSEN DO Primary Care Provider: LUCAS CAT Allergies Allergies adhesive tape Allergy (Unknown, Verified 05/06/25 07:33) bee venom protein (honey bee) Allergy (Unknown, Verified 05/06/25 07:33) fever, sweats, rash Sulfa (Sulfonamide Antibiotics) Allergy (Unknown, Verified 05/06/25 07:33) rash,hives, vomiting latex Allergy (Verified 05/06/25 07:33) Hospital Summary - Hospital Course Hospital Course: pt admitted on may 06 for undergoing laparoscopic assisted vaginal hysterectomy secondary severe dysmenorrhea and underwent procedure without complication. during postop period did well able to ambulate tolerate diet and incsiion was c/d/intact. labs reviewed and hgb 11.4. vaginal packing removed with minimal soilage and urine output adequate. pt advised to fu in office in 2 wks for postop check and was given percocet for pain management sent to [facility]. all questions answered to her satisfactoin and at this time stable for discharge. - Vitals & Intake/Output Vital Signs: Vital Signs Temperature 98.3 F 05/07/25 07:31 Pulse Rate 79 05/07/25 07:31 Respiratory Rate 18 05/07/25 07:31 Blood Pressure 99/55 05/07/25 07:31 O2 Sat by Pulse Oximetry 98 05/07/25 07:31 Intake & Output: Intake & Output 05/04/25 05/05/25 05/06/25 05/07/25 11:59 11:59 11:59 11:59 Intake Total 2163 Output Total 875 Balance 1288 Weight 89.7 kg 92.3 kg - Lab Result Diagrams: 05/07/25 04:22 05/07/25 04:22 Lab Results-Last 24 Hrs: Lab Results-Last 24 Hours 05/06/25 05/06/25 05/06/25 Range/Units 08:13 08:13 08:13 WBC 5.7 (3.98-10.04) x10^3/uL RBC 4.90 (3.93-5.22) x10^6/uL Hgb 14.3 (11.2-15.7) g/dL Hct 44.9 (34.1-44.9) % MCV 91.6 (79.4-94.8) fL MCH 29.2 (25.6-32.2) pg MCHC 31.8 L (32.2-35.5) g/dL RDW 13.0 (11.7-14.4) % Plt Count 232 (182-369) x10^3/uL MPV 9.9 (9.4-12.3) fL Gran % 67.4 (34.0-71.1) % Immature Gran % (Auto) 0.4 (0.001-0.429) % Nucleat RBC Rel Count 0.0 (0.00-0.2) % Eos # (Auto) 0.14 (0.04-0.36) x10^3/uL Immature Gran # (Auto) 0.02 (0.001-0.031) x10^3u/L Absolute Lymphs (auto) 1.20 (1.18-3.74) x10^3/uL Absolute Monos (auto) 0.44 (0.24-0.86) x10^3/uL Absolute Nucleated RBC 0.00 (0.00-0.012) x10^3u/L Lymphocytes % 21.1 (19.3-51.7) % Monocytes % 7.7 (4.7-12.5) % Eosinophils % 2.5 (0.7-5.8) % Basophils % 0.9 (0.1-1.2) % Absolute Granulocytes 3.85 (1.56-6.13) x10^3/uL Basophils # 0.05 (0.01-0.08) x10^3/uL Sodium 137 (135-145) mmol/L Potassium 4.0 (3.5-5.1) mmol/L Chloride 105 (98-107) mmol/L Carbon Dioxide 22 (22-30) mmol/L Anion Gap 13.8 (5-15) MEQ/L BUN 13 (7-17) mg/dL Creatinine 0.84 (0.52-1.04) mg/dL Estimated GFR 86.7 ML/MIN Glucose 88 (74-106) mg/dL Calcium 8.9 (8.4-10.2) mg/dL Total Bilirubin 0.80 (0.2-1.3) mg/dL AST 25 (14-36) U/L ALT 14 (0-35) U/L Alkaline Phosphatase 57 (38-126) U/L Serum Total Protein 8.0 (6.3-8.2) g/dL Albumin 4.6 (3.5-5.0) g/dL Urine Color (Yellow) Urine Appearance (Clear) Urine pH (4.6-8.0) Ur Specific [place] (1.005-1.030) Urine Protein (Negative) Urine Glucose (UA) (Negative) mg/dL Urine Ketones (Negative) Urine Blood (Negative) Urine Nitrite (Negative) Urine Bilirubin (Negative) Urine Urobilinogen (0.2) mg/dL Ur Leukocyte Esterase (Negative) U Hyaline Cast (Auto) (0-2) /LPF Urine Microscopic RBC (0-5) /HPF Urine Microscopic WBC (0-5) /HPF Ur Epithelial Cells (None Seen) /HPF Urine Bacteria (None Seen) /HPF ABO Group O Rh Factor POSITIVE Antibody Screen NEGATIVE (NEGATIVE) 05/06/25 05/06/25 05/07/25 Range/Units 12:03 18:00 04:22 WBC 17.9 H 11.9 H (3.98-10.04) x10^3/uL RBC 4.94 3.78 L (3.93-5.22) x10^6/uL Hgb 14.7 11.4 D (11.2-15.7) g/dL Hct 46.0 H 33.9 L (34.1-44.9) % MCV 93.1 89.7 (79.4-94.8) fL MCH 29.8 30.2 (25.6-32.2) pg MCHC 32.0 L 33.6 (32.2-35.5) g/dL RDW 12.8 13.2 (11.7-14.4) % Plt Count 241 213 (182-369) x10^3/uL MPV 9.9 10.4 (9.4-12.3) fL Gran % (34.0-71.1) % Immature Gran % (Auto) (0.001-0.429) % Nucleat RBC Rel Count (0.00-0.2) % Eos # (Auto) (0.04-0.36) x10^3/uL Immature Gran # (Auto) (0.001-0.031) x10^3u/L Absolute Lymphs (auto) (1.18-3.74) x10^3/uL Absolute Monos (auto) (0.24-0.86) x10^3/uL Absolute Nucleated RBC (0.00-0.012) x10^3u/L Lymphocytes % (19.3-51.7) % Monocytes % (4.7-12.5) % Eosinophils % (0.7-5.8) % Basophils % (0.1-1.2) % Absolute Granulocytes (1.56-6.13) x10^3/uL Basophils # (0.01-0.08) x10^3/uL Sodium (135-145) mmol/L Potassium (3.5-5.1) mmol/L Chloride (98-107) mmol/L Carbon Dioxide (22-30) mmol/L Anion Gap (5-15) MEQ/L BUN (7-17) mg/dL Creatinine (0.52-1.04) mg/dL Estimated GFR ML/MIN Glucose (74-106) mg/dL Calcium (8.4-10.2) mg/dL Total Bilirubin (0.2-1.3) mg/dL AST (14-36) U/L ALT (0-35) U/L Alkaline Phosphatase (38-126) U/L Serum Total Protein (6.3-8.2) g/dL Albumin (3.5-5.0) g/dL Urine Color Yellow (Yellow) Urine Appearance Clear (Clear) Urine pH 8.0 (4.6-8.0) Ur Specific [place] 1.010 (1.005-1.030) Urine Protein Negative (Negative) Urine Glucose (UA) Negative (Negative) mg/dL Urine Ketones Negative (Negative) Urine Blood Negative (Negative) Urine Nitrite Negative (Negative) Urine Bilirubin Negative (Negative) Urine Urobilinogen 1.0 A (0.2) mg/dL Ur Leukocyte Esterase Negative (Negative) U Hyaline Cast (Auto) NONE SEEN (0-2) /LPF Urine Microscopic RBC 0-2 (0-5) /HPF Urine Microscopic WBC 0-2 (0-5) /HPF Ur Epithelial Cells None Seen (None Seen) /HPF Urine Bacteria None Seen (None Seen) /HPF ABO Group Rh Factor Antibody Screen (NEGATIVE) 05/07/25 Range/Units 04:22 WBC (3.98-10.04) x10^3/uL RBC (3.93-5.22) x10^6/uL Hgb (11.2-15.7) g/dL Hct (34.1-44.9) % MCV (79.4-94.8) fL MCH (25.6-32.2) pg MCHC (32.2-35.5) g/dL RDW (11.7-14.4) % Plt Count (182-369) x10^3/uL MPV (9.4-12.3) fL Gran % (34.0-71.1) % Immature Gran % (Auto) (0.001-0.429) % Nucleat RBC Rel Count (0.00-0.2) % Eos # (Auto) (0.04-0.36) x10^3/uL Immature Gran # (Auto) (0.001-0.031) x10^3u/L Absolute Lymphs (auto) (1.18-3.74) x10^3/uL Absolute Monos (auto) (0.24-0.86) x10^3/uL Absolute Nucleated RBC (0.00-0.012) x10^3u/L Lymphocytes % (19.3-51.7) % Monocytes % (4.7-12.5) % Eosinophils % (0.7-5.8) % Basophils % (0.1-1.2) % Absolute Granulocytes (1.56-6.13) x10^3/uL Basophils # (0.01-0.08) x10^3/uL Sodium 135 (135-145) mmol/L Potassium 3.6 (3.5-5.1) mmol/L Chloride 110 H (98-107) mmol/L Carbon Dioxide 20 L (22-30) mmol/L Anion Gap 9.1 (5-15) MEQ/L BUN 10 (7-17) mg/dL Creatinine 0.68 (0.52-1.04) mg/dL Estimated GFR 108.7 ML/MIN Glucose 100 (74-106) mg/dL Calcium 8.2 L (8.4-10.2) mg/dL Total Bilirubin 0.40 (0.2-1.3) mg/dL AST 17 (14-36) U/L ALT 12 (0-35) U/L Alkaline Phosphatase 55 (38-126) U/L Serum Total Protein 5.9 L (6.3-8.2) g/dL Albumin 3.2 L (3.5-5.0) g/dL Urine Color (Yellow) Urine Appearance (Clear) Urine pH (4.6-8.0) Ur Specific [place] (1.005-1.030) Urine Protein (Negative) Urine Glucose (UA) (Negative) mg/dL Urine Ketones (Negative) Urine Blood (Negative) Urine Nitrite (Negative) Urine Bilirubin (Negative) Urine Urobilinogen (0.2) mg/dL Ur Leukocyte Esterase (Negative) U Hyaline Cast (Auto) (0-2) /LPF Urine Microscopic RBC (0-5) /HPF Urine Microscopic WBC (0-5) /HPF Ur Epithelial Cells (None Seen) /HPF Urine Bacteria (None Seen) /HPF ABO Group Rh Factor Antibody Screen (NEGATIVE) - Procedures and Test Procedures and Tests throughout Hospitalization: Therapy Orders & Screens 05/06/25 16:11 Incentive Spirometry ROUTINE Comment: Diagnosis: severe dysmenorrhea, post op hysterectomy Discharge Exam Wound Assessment: Skin/Wound Assessment Wound/Incision Assessment Start: 05/06/25 16:25 Text: Status: Active Freq: Protocol: Document 05/06/25 16:25 RB (Rec: 05/06/25 16:26 RB [id number]) Wound/Incision Assessment Upper Thigh Wound Assessment Admission Wound Type rash Wound Stage Non Pressure Wound Dressing Status Dry & Intact Drainage Odor None/Absent Comment rash noted to bilateral inner thighs, pt reports she gets in grown hairs and picks them out. no bleeding or drainage noted Anterior Abdomen Wound Assessment Admission Wound Type Puncture Wound Stage Non Pressure Wound Dressing Status Dry & Intact Drainage Amount None Drainage Odor None/Absent General Appearance Well Approximated Primary Dressing open to air Comment 3 ounctuer sites post op hysterectoimy, dermabonded, no bleeding or drainage Wound Photo Photo Taken No Final Diagnosis/Problem List - Final Discharge Diagnosis/Problem (1) S/P laparoscopic assisted vaginal hysterectomy ([facility]) Current Visit: Yes Status: Acute Code(s): Z90.710 - ACQUIRED ABSENCE OF BOTH CERVIX AND UTERUS (2) Severe dysmenorrhea Current Visit: Yes Status: Acute Code(s): N94.6 - DYSMENORRHEA, UNSPECIFIED - Discharge Disposition: Home, Self-Care Condition: Stable Prescriptions: New Oxycodone HCl/Acetaminophen [Percocet 5-325 mg Tablet] 1 each PO Q6H PRN PRN #20 tablet MDD 4 PRN Reason: Moderate To Severe Pain No Action Colestipol HCl [Colestid] 1 tab PO DAILY Amitriptyline HCl 25 mg [Amitriptyline 25 mg Tablet] 25 mg PO DAILY PANTOPRAZOLE 40 mg Tablet [Protonix 40MG Tablet] 40 mg PO DAILY Ferrous Sulfate 325 mg PO DAILY Estradiol 1 mg [Estrace 1 mg] 1 mg PO DAILY ondansetron HCL [Ondansetron HCl] 4 mg PO Q4-6HPRN PRN PRN Reason: Nausea Follow up with: LUCAS CAT [Primary Care Provider, [facility]] JULIANNE ANDERSEN DO [ACTIVE STAFF, OBSTETRICS-GYNECOLOGY] - 2 weeks Referral Note: should call me for any issues that may arise upon discharge may drive in 7 days no heavy lifting no intercourse for 6 wks should fu in 2 wks
[2025-05-07] MEDS: ENOXAPARIN SODIUM SQ SCH (08:41)
[2025-05-07] MEDS: HOLD NARCOTIC ANALGESICS AND SEDATIVES X24 HR MC SCH (09:26)
[2025-05-07] MEDS ORDERED: NON-FORMULARY ITEM (Colestipol Hcl [Colestid] 1 GM Tablet) PO SCH (10:00)
[2025-05-07 11:54] LABS: Hematocrit 36.7 % (34.1-44.9); Hemoglobin 11.8 g/dL (11.2-15.7); Mean Corpuscular Hemoglobin 29.5 pg (25.6-32.2); Mean Corpuscular Hgb Concent. 32.2 g/dL (32.2-35.5); Platelet Count 193 x10^3/uL (182-369); Red Blood Count 4.00 x10^6/uL (3.93-5.22); White Blood Count 9.6 x10^3/uL (3.98-10.04)
[2025-05-07 11:58] VITALS: BP 105/55; PULSE 83; RESP 20; TEMP 97.7
--- NOTE | 2025-05-08 11:51 | OP ---
SURGERY DATE/TIME: 05/06/2025 [id number] PREOPERATIVE DIAGNOSIS: Severe dysmenorrhea. POSTOPERATIVE DIAGNOSIS: Severe dysmenorrhea. PROCEDURE: Laparoscopic-assisted vaginal hysterectomy. SURGEON: Laith Villalpando DO PIPE CLEANER: Coty Briscoe ANESTHESIA: General. ESTIMATED BLOOD LOSS: 50 mL. COMPLICATIONS: None. INDICATIONS: The risks, benefits, indications, and alternatives of the procedure were reviewed with the patient prior to the procedure. The patient understood the risks of infection, bleeding, bowel injury, bladder injury, ureteral injury, pelvic infection, thromboembolic disorder associated with the surgery as well as shortening of her vagina. Patient also understands the risks of hot flashes and menopausal symptoms associated with the procedure. DESCRIPTION OF PROCEDURE AND FINDINGS: At this point, the patient was taken to the operating room, given general sedation, placed in a dorsal lithotomy position. At this time, the patient was prepped and draped in the usual sterile fashion, and attention was then turned to the patient's abdomen where a 5 mm skin incision was made approximately 1 cm above the umbilicus where a 5 mm trocar and sleeve were advanced under direct visualization where pneumoperitoneum was obtained with 4 L of CO2 gas. An additional incision was made in the left middle quadrant region where a 5 mm incision was made, and a 5 mm trocar and sleeve were advanced under direct visualization, and a third incision was made in the right middle quadrant region where trocar and sleeve were advanced under direct visualization. A survey of the patient's pelvis and abdomen revealed an entirely normal anatomy. At this point, the uterus was grasped and tilted to the right with the chemist assistant grasping the left cornual region of the uterus tilting it to the right, and the left utero-ovarian ligament was clamped, coagulated and cut, and taken down to the round ligament toward the uterine vasculature where the uterine vasculature was identified and skeletonized at this point, and the LigaSure was placed on 2 contiguous regions, was clamped, coagulated, and cut. Hemostasis was obtained. Same procedure was performed on the right side where the right utero-ovarian ligament was clamped, coagulated and cut, taken down to the round ligament toward the uterine vasculature where it too was skeletonized, and the uterine vasculature was clamped, coagulated and cut on 2 contiguous regions. Hemostasis was obtained. Bladder flap developed on its side as well. From this point, attention was then turned to the patient's pelvic region where a weighted speculum was then placed into the vagina, and the cervix was grasped with the Maricarmen clamps, then was injected circumferentially with diluted vasopressin and approximately 20 mL was used. The cervix was then circumferentially incised with a scalpel, and the bladder dissected off the pubovesical cervical fascia anteriorly with a sponge stick and the Metzenbaum scissors. The anterior cul-de-sac was then entered sharply. The same procedure was performed posteriorly, and the posterior cul-de-sac was entered sharply without difficulty. At this point, a Diana clamp was placed on the uterosacral ligaments on either side. These were then transected and suture ligated with 0 Vicryl suture. Hemostasis was assured. The cardinal ligaments were then clamped on both sides, transected and suture ligated in a similar fashion. From this point, the uterine arteries and the broad ligament were serially clamped, coagulated and cut with the LigaSure, and hemostasis was obtained. From this point, the uterus was then delivered without difficulty. From this point, the vaginal cuff angles were closed with the [id number] sutures of 0 Vicryl on both sides and transfixed to the ipsilateral cardinal and uterosacral ligaments. The remainder of the vaginal cuff was closed with [id number] stitches of 0 Vicryl in an interrupted fashion. From this point, a second-look in the abdomen via the laparoscope was then made, and there was no bleeding that was noted in the pelvic region. From this point, all instruments were then removed from the patient's abdominal region, and the incisions were closed with 4-0 Monocryl suture. The patient was then taken out of the dorsal lithotomy position, was taken out of anesthesia, and was then taken to the recovery room in stable condition. All instruments and laps were accounted for x2.
== END 2025-05-07 14:22 | disposition home or self-care (01) ==
LOC: MED SURG 07:06 → EDSTATUS 11:35
PROVIDERS: ADMIT Obstetrics & Gynecology; ATTEND Obstetrics & Gynecology
DX: N94.6 Dysmenorrhea, unspecified (principal)
CPT/HCPCS: 36415; 58550; 80053; 81001; 81025; 85025; 85027; 86850; 86900; 86901; 87086; G0378